=== PATIENT | female | born 1970 | race Caucasian/White ===

== ENCOUNTER 2018-09-07 18:55 | Emergency (ER) | payer MEDICAID ==
[2018-09-07] MEDS ORDERED: KETOROLAC TROMETHAMINE 60 MG/2 ML VIAL ONE (19:26)
[2018-09-07] MEDS ORDERED: DIAZEPAM 5 MG TABLET ONE (19:27)
[2018-09-07] MEDS ORDERED: LIDOCAINE 5% TOPICAL PATCH TP ONE (19:28)
== END 2018-09-07 21:09 | disposition home or self-care (01) ==
LOC: EDH 18:55
DX: M54.16 Radiculopathy, lumbar region (principal); I10 Essential (primary) hypertension; M19.90 Unspecified osteoarthritis, unspecified site; Z96.649 Presence of unspecified artificial hip joint
CPT/HCPCS: 73521; 96372; 99284; J1885